=== PATIENT | female | born 1960 | race Caucasian/White ===

== ENCOUNTER 2017-07-30 12:07 | Day surgery (SDC) | payer OTHER ==
[~2017-07-30] VITALS: Ht 162.6 cm; Wt 73.8 kg
[2017-07-30] MEDS ORDERED: IBUP200C PO (13:23)
[2017-07-30] MEDS ORDERED: OMEP20CA16 PO (13:24)
[2017-07-30 13:27] VITALS: Ht 162.6 cm; Wt 73.8 kg
[2017-07-30 13:53] VITALS: BP 110/75; PULSE 74; RESP 31
[2017-07-30] MEDS ORDERED: PROPOFOL 40 ML ONE (14:51)
--- NOTE | 2017-07-30 14:56 | OPPN ---
Date/Time of Note Date/Time of Note DATE: 07/30/17 TIME: 14:50 Proc Note GI Procedure Date 07/30/17 Indication: other (Dyspepsia) Pre-procedure Diagnosis Dyspepsia Post-procedure Diagnosis Impression: Mild distal esophagitis. Proximal displacement of the esophagogastric junction. Rule out Dejesus's esophagus. Biopsies obtained Erosive gastritis. Rule out H. pylori infection. Biopsies obtained Plan: PPI therapy Review pathology Follow-up as previously scheduled . Procedure Performed: Endoscopy (With biopsies) Surgeon ZENA DIXON MD See signature line Fish Drier none Anesthesia Type: MAC Anesthesiologist: CAMILLE LUEVANO MD Tourniquet Time none EBL none Transfusion required none Biopsy 1: Gastric body and antrum Biopsy 2: Distal esophagus Grafts/Implants none Tubes/Drains none Complication(s) none Disposition: home Procedure Description After informed consent, with the patient/relatives understanding the procedure, its indications, potential risks and complications, including but not limited to : allergic reaction, bleeding, perforation or infection, and after all pertinent questions were answered to the patients satisfaction, the patient/ relatives signed witnessed informed consent. Following this, premedication was administered slowly IV push under careful cardiovascular and respiratory monitoring with pulse oximetry, automatic blood pressure, and trimmer operator three knife. Once the sedative effect was achieved the patient was place in the left lateral decubitus, the panendoscope was introduced and advanced under visual control. Careful examination of the upper gastrointestinal tract, both on insertion as well as withdrawal of the instrument disclosing the following findings: ESOPHAGUS: the mucosa of the entire esophagus was carefully examined and showed the following findings: There is mild erythema of the mucosa at the e.g. junction. There is proximal displacement and irregularity of the esophagogastric junction. Biopsies were obtained to rule out Dejesus's esophagus. Otherwise the mucosa appears within normal limits. There is no evidence of varices, neoplasm, or stricture. No Hiatal Hernia identified. STOMACH: Upon entrance to the stomach air was insufflated, the gastric quiles distended normally. The mucosa of the fundus, body and antrum of the stomach was carefully examined both head-on and on retroflexion, and showed the following findings: There is erythema and edema of the mucosa as well as superficial erosions in the antrum of the stomach. Biopsies were obtained to rule out H. pylori infection. Otherwise the mucosa appears within normal limits with no abnormalities. There is no evidence of ulcers or neoplasm. PYLORUS: The pylorus was carefully examined and showed the following findings: the pylorus appears patent and within normal limits, with no evidence of gastric outlet obstruction. DUODENUM: The duodenal mucosa was carefully examined in the duodenal bulb as well as the second portion of the duodenum and showed the following findings: the mucosa appears unremarkable with no evidence of duodenitis, ulcer or neoplasm. Copies To: CC: ZENA DIXON MD, MORDO MD Jul 30, 2017 14:56
--- NOTE | 2017-07-30 14:58 | OPPN ---
Date/Time of Note Date/Time of Note DATE: 07/30/17 TIME: 14:56 Proc Note GI Procedure Date 07/30/17 Indication: other (Colorectal cancer screening) Pre-procedure Diagnosis Colorectal cancer screening Post-procedure Diagnosis Impression: Normal colonic mucosa to cecum. Moderate-sized internal hemorrhoids. Plan: Follow up as scheduled] High fiber diet Annual hemoccult stool testing [Screening colonoscopy in 10 years] . Procedure Performed: Colonoscopy Surgeon ZENA DIXON MD See signature line Intensive Care Unit Nurse none Anesthesia Type: MAC Anesthesiologist: CAMILLE LUEVANO MD Tourniquet Time none EBL none Transfusion required none Biopsy 1: None Grafts/Implants none Tubes/Drains none Complication(s) none Disposition: home Procedure Description After informed consent, with the patient/relatives understanding the procedure, its indications and potential risks and complications, including but not limited to: Allergic reaction, bleeding, perforation, infection, and after all pertinent questions were answered to the patient's satisfaction, the patient/ relatives signed the witnessed informed consent. Following this, premedication was administered slowly IV push under careful cardiovascular and respiratory monitoring with pulse OXIMETRY, automatic blood pressure, and exhaust machine operator. Once the sedative effect was achieved, the patient was placed in the left lateral decubitus position, digital rectal examination was performed. The colonoscope was then introduced and advanced under visual control throughout all segments of the colon including: the rectum, sigmoid, descending colon, splenic flexure, transverse colon, hepatic flexure, ascending colon and finally reaching the cecum which was clearly identified by transillumination, finger indentation and the ileocecal valve. Careful examination of the mucosa of the lower gastrointestinal tract both on insertion as well as withdrawal of the instrument disclosed the following findings: PREPARATION QUALITY: [Adequate], RECTAL EXAM: The anorectal area was visualized examined and digital rectal examination performed with the following findings: No evidence of perirectal disease, no masses. COLONIC MUCOSA: The mucosa of all segments of the colon was carefully examined and showed the following findings: the examined mucosa appears within normal limits. There is no evidence of inflammatory changes, diverticular formation, polyps or neoplasms, vascular malformation, or any other abnormality. Moderate-sized internal hemorrhoids are present The instrument was then withdrawn, the patient tolerated the procedure well and was transferred out of the Endoscopy Suite awake and in good condition to continue recovery under observation. Copies To: CC: ZENA DIXON MD, MORDO MD Jul 30, 2017 14:58
[2017-07-30 15:14] VITALS: BP 108/74; PULSE 64; RESP 16
== END 2017-07-30 16:56 | disposition home or self-care (01) ==
LOC: GIL 12:07
PROVIDERS: ATTEND Internal Medicine Gastroenterology
DX: Z12.11 Encounter for screening for malignant neoplasm of colon (principal); K64.8 Other hemorrhoids; K20.9 Esophagitis, unspecified; K29.70 Gastritis, unspecified, without bleeding
CPT/HCPCS: 43239; 45378; Z7610; 88305; 88312; 88313